=== PATIENT | female | born 1965 | race Caucasian/White ===

== ENCOUNTER 2017-03-02 14:38 | Outpatient (CLI) | payer OTHER ==
[~2017-03-02] VITALS: Ht 149.9 cm; Wt 55.5 kg
[~2017-03-02 14:38] MED LIST: MACBID PO
[2017-03-02 14:47] VITALS: Ht 149.9 cm; Wt 55.5 kg
[2017-03-02 14:49] VITALS: BP 122/77; PULSE 92; RESP 16
--- NOTE | 2017-03-02 15:24 | PN ---
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 loss, slight fatigue, normal appetite, no diaphoresis. Eyes: No pain, no discharge, no redness, no visual change, no foreign body. ENT: No pain, no bleeding, no congestion, no sore throat, no dysphagia, no discharge or rhinitis. Lymph: No adenopathy, no tender nodes, no lymphedema. Resp: No SOB, no cough, no sputum, no wheezing, no chest pain. CV: No chest pain, no palpitaions, no THOMAS, no PND, no edema. GI: Normal appetite mild epigastric pain, no nausea, no vomiting, no diarrhea, no blood, no constipation. : No frequency, no urgency, no dysuria, no hematuria, no flank pain, no discharge, no bleeding. Musc:, no back pain, no neck pain, no knee pain, no restricted ROM. Patient is joint pain especially of the hand, and slight deformity, secondary to arthritis Skin: No rash, no skin lesions, no erythema, no laceration, no bruising, no pruritus. Neuro: No ANDERSON, no dizziness, no syncope, no seizure, no focal-weakness. Endo: No polyuria, no polydypsia, no dry-skin, no temp-intolerance. Psych: No hallucinations, slightly depression, and patient has anxiety, no suicidal ideation. Ext: No edema, no pain, no ulcer, no weakness. Physical Exam Vital Signs Date Time Temp Pulse Resp B/P Pulse Ox O2 Delivery O2 Flow Rate FiO2 03/02/17 14:49 98.0 92 16 122/77 98 Room Air General Appearance: A 51] year-old female who appears well-developed, well- nourished, in no acute distress. HEENT: Head normocephalic, atraumatic. Pupils equal, round, reactive to light and accommodate. Sclerae are no jaundice. Nasal turbinates pink without erythema or nasal discharge. Mucous membranes pink and moist without lesions. Oropharynx clear without any exudate or discharge. NECK: Supple. Trachea midline, No thyromegaly, No cervical lymphadenopathy, No mass, No carotid bruits, No JVD, Carotid pulses 2+ bilaterally. PULMONARY: Clear to auscultaion bilaterally, No retractions, Chest expansion symmetric bilaterally, no rales, no ronchi, no dulness on percussion. CARDIAC: Normal SI and S2, Regular rate and rythm, no murmur, gallop, or rub. GASTROINTESTINAL: Abdomen is soft, epigastric discomfort, patient has slight deforming arthritis on the joints of the hand, Non Rigid, No distention, Positive bowel sounds x4 quadrants, Liver normal. SKIN: Warm, dry, no rash, no bruise, no echmosis. EXTREMITIES: Bilateral lower extremities normal, no edema, no phlabitus, pulse palpable, no contracture. MUSCULOSKELETAL: Slight stiffness, spine Normal, Non-tender, Normal range of motion, No swelling, no deformity, no clubbing, or cyanosis, the patient has no edema to bilateral lower extremities, dorsalis pedis pulses palpable bilaterally. NEUROLOGIC: The patient is awake, alert, oriented, responding to yes/no questions appropriately, moving all extremities, cranial nerve intact, normal strenght, normal power, normal coordination, normal gait. 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 daily #30 Medications Home Meds Discontinued Reported Medications Nitrofurantoin Monohyd Macrocr (Macrobid) 100 Mg Capsr, 100 MG PO BID for 10 Days 10/02/13 ROSALINO SANCHEZ MD Mar 02, 2017 15:24
== END 2017-03-02 16:56 | disposition home or self-care (01) ==
LOC: DCC 14:38
PROVIDERS: ATTEND Internal Medicine
DX: R07.9 Chest pain, unspecified (principal); F32.9 Major depressive disorder, single episode, unspecified; I10 Essential (primary) hypertension; K27.9 Peptic ulcer, site unspecified, unspecified as acute or chronic, without hemorrhage or perforation; M06.9 Rheumatoid arthritis, unspecified; Z88.0 Allergy status to penicillin

== ENCOUNTER → 2017-03-22 | Outpatient (CLI) | payer OTHER ==
[~2017-03-22] VITALS: Ht 149.9 cm; Wt 55.9 kg
[2017-03-22 15:45] VITALS: Ht 149.9 cm; Wt 55.9 kg
[2017-03-22 15:46] VITALS: BP 128/65; PULSE 82; RESP 16
--- NOTE | 2017-03-22 15:59 | PN ---
Date/Time of Note Date/Time of Note DATE: 03/22/17 TIME: 15:52 Outpatient Progress Note Chief Complaint PUD/depression/hypertension/chest pain HPI PUD/no nausea vomiting or hematemesis or melena, slightly better, heartburn much improved, Depression patient slightly depressed, no suicidal idea, Hypertension/no headache or dizziness, Chest pain patient had history of chest pain, patient was recently hospitalized , at present no chest pain, no palpitations syncope, patient was in [place] few days ago, Review of Systems Const: No Fever, no chills, no Wt. loss, no Fatigue, normal appetite, no diaphoresis. Eyes: No pain, no discharge, no redness, no visual change, no foreign body. ENT: No pain, no bleeding, no congestion, no sore throat, no dysphagia, no discharge or rhinitis. Lymph: No adenopathy, no tender nodes, no lymphedema. Resp: No SOB, no cough, no sputum, no wheezing, no chest pain. CV: No chest pain, no palpitaions, no THOMAS, no PND, no edema. GI: Normal appetite, epigastric pain improved,, no nausea, no vomiting, no diarrhea, no blood, no constipation. : No frequency, no urgency, no dysuria, no hematuria, no flank pain, no discharge, no bleeding. Musc: , no back pain, no neck pain, no knee pain, no restricted ROM. Skin: No rash, no skin lesions, no erythema, no laceration, no bruising, no pruritus. Neuro: No ANDERSON, no dizziness, no syncope, no seizure, no focal-weakness. Endo: No polyuria, no polydypsia, no dry-skin, no temp-intolerance. Psych: No hallucinations, patient slightly depression, and also anxious,, no suicidal ideation. Ext: No edema, no pain, no ulcer, no weakness. Physical Exam Vital Signs Date Time Temp Pulse Resp B/P Pulse Ox O2 Delivery O2 Flow Rate FiO2 03/22/17 15:46 98.4 82 16 128/65 98 Room Air General Appearance: A 51 year-old female who appears well-developed, well- nourished, in no acute distress. HEENT: Head normocephalic, atraumatic. Pupils equal, round, reactive to light and accommodate. Sclerae are no jaundice. Nasal turbinates pink without erythema or nasal discharge. Mucous membranes pink and moist without lesions. Oropharynx clear without any exudate or discharge. NECK: Supple. Trachea midline, No thyromegaly, No cervical lymphadenopathy, No mass, No carotid bruits, No JVD, Carotid pulses 2+ bilaterally. PULMONARY: Clear to auscultaion bilaterally, No retractions, Chest expansion symmetric bilaterally, no rales, no ronchi, no dulness on percussion. CARDIAC: Normal SI and S2, Regular rate and rythm, no murmur, gallop, or rub. GASTROINTESTINAL: Abdomen is soft, non-tender, Non Rigid, No distention, Positive bowel sounds x4 quadrants, Liver normal. SKIN: Warm, dry, no rash, no bruise, no echmosis. EXTREMITIES: Bilateral lower extremities normal, no edema, no phlabitus, pulse palpable, no contracture. MUSCULOSKELETAL: Spine Normal, Non-tender, Normal range of motion, No swelling, no deformity, no clubbing, or cyanosis, the patient has no edema to bilateral lower extremities, dorsalis pedis pulses palpable bilaterally. NEUROLOGIC: The patient is awake, alert, oriented, responding to yes/no questions appropriately, moving all extremities, cranial nerve intact, normal strenght, normal power, normal coordination, normal gait. Allergies Coded Allergies: Penicillins (Verified Allergy, Unknown, 10/08/13) aspirin (Verified Allergy, Unknown, 10/08/13) metoclopramide HCl (Verified Allergy, Unknown, 10/08/13) Social Hx No change Family Hx No change Assessment/Plan Impression PUD/depression/hypertension/chest pain/anxiety Plan Patient education done about a bowel disease, patient also has early chondral chondritis, patient advised to take anti-inflammatory, Patient also advised to continue Protonix or equivalent, including Pepcid or Zantac, Patient encouraged to increase activity, Patient to follow with the primary care physician, ROSALINO SANCHEZ MD Mar 22, 2017 15:59
== END | disposition home or self-care (01) ==
LOC: DCC 15:37
PROVIDERS: ATTEND Internal Medicine
DX: R07.9 Chest pain, unspecified (principal); F32.9 Major depressive disorder, single episode, unspecified; I10 Essential (primary) hypertension; K27.9 Peptic ulcer, site unspecified, unspecified as acute or chronic, without hemorrhage or perforation